=== PATIENT | male | born 1995 | race Caucasian/White ===

== ENCOUNTER 2017-08-25 22:20 | Emergency (ER) | payer MEDICAID ==
[~2017-08-25] VITALS: Ht 172.7 cm; Wt 88.9 kg
[2017-08-26 00:06] LABS: BASOPHILS # (AUTO) 0.1 K/uL (0.0-8.0); BASOPHILS % (AUTO) 0.9 % (0.0-2.0); EOSINOPHILS # (AUTO) 0.1 K/uL (0.0-0.7); EOSINOPHILS % (AUTO) 1.1 % (0.0-7.0); HEMATOCRIT 46.3 % (40-50); HEMOGLOBIN 15.1 G/DL (14.0-18.0); LYMPHOCYTES # (AUTO) 2.1 K/UL (0.8-4.8); LYMPHOCYTES % (AUTO) 21.7 % (20.5-51.5); MEAN CORPUSCULAR HEMOGLOBIN 25.8 UUG (27.0-31.0); MEAN CORPUSCULAR HGB CONC 33 g/dL (32.0-37.0); MEAN CORPUSCULAR VOLUME 79.5 FL (82.0-92.0); MONOCYTES # (AUTO) 0.8 K/UL (0.1-1.30); MONOCYTES % (AUTO) 8.6 % (0.0-11.0); NEUTROPHILS # (AUTO) 6.6 K/UL (1.8-8.9); NEUTROPHILS % (AUTO) 67.7 % (38.5-71.5); PLATELET COUNT (AUTO) 270 K/UL (150-450); RED BLOOD CELL COUNT(AUTO) 5.83 MIL/UL (4.7-6.1); WHITE BLOOD COUNT (AUTO) 9.7 K/UL (4.0-11.2)
[2017-08-26 00:19] LABS: POTASSIUM 3.4 mmol/L (3.5-5.1)
[2017-08-26 00:24] LABS: BILIRUBIN,DIRECT 0.1 mg/dL (0.0-0.2); BILIRUBIN,TOTAL 0.2 mg/dL (0.2-1.0); TOTAL PROTEIN, SERUM 7.8 g/dL (6.4-8.2)
--- NOTE | 2017-08-26 02:32 | NUR ---
Patient discharged to home in stable conditon. Written and verbal after care instructions given. Patient verbalizes understanding of instructions.
[2017-08-26 02:33] VITALS: BP 138/88
== END 2017-08-26 02:33 | disposition home or self-care (01) ==
LOC: ER 22:23
DX: R10.11 Right upper quadrant pain (principal); R31.9 Hematuria, unspecified; F17.200 Nicotine dependence, unspecified, uncomplicated
CPT/HCPCS: 74176; 80048; 80076; 83690; 85025; 99285; A4663

== ENCOUNTER 2018-11-11 07:33 | Emergency (ER) | payer MEDICAID ==
[~2018-11-11] VITALS: Ht 170.2 cm; Wt 72.6 kg
--- NOTE | 2018-11-11 07:40 | NUR ---
patient been examined by
[2018-11-11] MEDS ORDERED: ONDANSETRON 4 MG/2 ML VIAL ONE (07:43)
[2018-11-11] MEDS ORDERED: ONDANSETRON 4 MG/2 ML VIAL IV ONE (07:45)
[2018-11-11] MEDS ORDERED: IV NORMAL SALINE 1000 ML BAG IV ONE (07:45)
[2018-11-11 07:52] LABS: BASOPHILS % (AUTO) 0.9 % (0.0-2.0); EOSINOPHILS # (AUTO) 0.1 K/uL (0.0-0.7); EOSINOPHILS % (AUTO) 2.9 % (0.0-7.0); HEMATOCRIT 47.2 % (36.7-47.1); HEMOGLOBIN 15.6 g/dL (12.5-16.3); LYMPHOCYTES # (AUTO) 1.6 K/uL (20.0-40.0); LYMPHOCYTES % (AUTO) 34.1 % (20.5-51.5); MEAN CORPUSCULAR HEMOGLOBIN 26.2 uug (23.8-33.4); MEAN CORPUSCULAR HGB CONC 33 g/dL (32.5-36.3); MEAN CORPUSCULAR VOLUME 79.2 fL (73.0-96.2); MONOCYTES # (AUTO) 0.6 K/uL (2.0-10.0); MONOCYTES % (AUTO) 13.5 % (0.0-11.0); NEUTROPHILS # (AUTO) 2.2 K/uL (1.8-8.9); NEUTROPHILS % (AUTO) 48.6 % (38.5-71.5); PLATELET COUNT (AUTO) 193 K/uL (152-348); RED BLOOD CELL COUNT(AUTO) 5.96 MIL/uL (4.06-5.63); WHITE BLOOD COUNT (AUTO) 4.6 K/uL (3.6-10.2)
[2018-11-11 08:01] LABS: CREATININE 1.2 mg/dL (0.6-1.3); POTASSIUM 3.9 mmol/L (3.5-5.1)
[2018-11-11 08:06] LABS: BILIRUBIN,DIRECT 0.1 mg/dL (0.0-0.2); BILIRUBIN,TOTAL 0.3 mg/dL (0.2-1.0); TOTAL PROTEIN, SERUM 7.5 g/dL (6.4-8.2)
--- NOTE | 2018-11-11 08:28 | NUR ---
at bedside to update and reassess pt.
[2018-11-11] MEDS ORDERED: MAG HYDROX/AL HYDROX/SIMETH 30 ML LIQUID UDC PO ONE ×2 (08:30→08:45)
[2018-11-11] MEDS ORDERED: LIDOCAINE VISCUS 2% 15 ML UDC MM ONE ×2 (08:30→08:45)
[2018-11-11] MEDS ORDERED: MAG HYDROX/AL HYDROX/SIMETH 30 ML LIQUID UDC ONE (08:39)
[2018-11-11] MEDS ORDERED: LIDOCAINE VISCUS 2% 15 ML UDC ONE (08:39)
--- NOTE | 2018-11-11 09:11 | NUR ---
patient able to tolerate orange juice and cookies. NO c/of nause or vomiting. SBP of 115/61, hr 90, rr 16.
[2018-11-11 09:16] VITALS: BP 115/61
--- NOTE | 2018-11-11 09:24 | NUR ---
dcd instructions given to pt. who verbalized understanding. pt. left unit ambulatory [id number]. made a phone call to be scrap picker from ER. waiting area.
== END 2018-11-11 09:25 | disposition home or self-care (01) ==
LOC: ER 07:33
DX: R11.2 Nausea with vomiting, unspecified (principal); R07.0 Pain in throat; F17.200 Nicotine dependence, unspecified, uncomplicated
CPT/HCPCS: 36415; 80048; 80076; 83690; 85025; 96361; 96374; 99283; J2405; A4663; J7030

== ENCOUNTER 2020-12-27 20:33 | Emergency (ER) | payer BC, MEDICAID ==
[~2020-12-27] VITALS: Ht 172.7 cm; Wt 72.6 kg
--- NOTE | 2020-12-27 20:55 | NUR ---
SEEN BY MD, RECEIVED PATIENT AWAKE , ORIENTED , ABLE TO FOLLOW COMMAND , DENIES PAIN AT THIS TIME ON RA
[2020-12-27] MEDS ORDERED: LORA2TAB95 PO (20:57)
[2020-12-27] MEDS ORDERED: LORAZEPAM 0.5 MG TABLET PO ONE (21:00)
[2020-12-27] MEDS ORDERED: LORAZEPAM 1 MG TABLET ONE (21:04)
--- NOTE | 2020-12-27 21:20 | NUR ---
DENIES DISTRESS , STATED DECREASED ON ANXIETY , ABLE TO FOLLOW COMMAND
--- NOTE | 2020-12-27 21:23 | NUR ---
DISCHARGED ACCOMPANIED AND PICKED UP BY MOTHER
== END 2020-12-27 21:30 | disposition home or self-care (01) ==
LOC: ER 20:35
DX: F41.0 Panic disorder [episodic paroxysmal anxiety] (principal)
CPT/HCPCS: A4663